=== PATIENT | female | born 1965 | race Hispanic/Latino ===

== ENCOUNTER 2017-05-06 07:01 | Outpatient (CLI) | payer BC | END 2017-05-06 07:02 | disposition home or self-care (01) | LOC: BICULT 07:01 | PROVIDERS: ATTEND Specialist | DX: R79.89 Other specified abnormal findings of blood chemistry (principal); Z90.49 Acquired absence of other specified parts of digestive tract | CPT/HCPCS: 76705 ==

== ENCOUNTER 2017-05-13 07:55 | Outpatient (CLI) | payer BC ==
[2017-05-13] MEDS ORDERED: Gadobenate Dimeglumine 529 MG/1 ML (20ML VIAL) ONE (11:55)
--- NOTE | 2017-05-13 12:11 | MRI ---
MRI CERVICAL SPINE WITH AND WITHOUT CONTRAST: Date: 05/13/17 HISTORY: 51-year-old female with M54.12, cervical radicular pain. Cervical radiculopathy. Neck pain that radia [place] to bilateral upper extremities with bilateral hand paresthesia and pain. COMPARISON: None. TECHNIQUE: Multisequence MRI of cervical spine obtained in sagittal and axial planes, pre and post IV injection of 17 mL MultiHance Gadolinium based contrast agent. FINDINGS: No Chiari 1 malformation. Normal size and signal of the spinal cord, without syrinx. Vertebral body h eights are maintained. Alignment is normal. ACDF metallic hardware at C5 and C6. C1-2: Essentially normal. C2-3: Normal. C3-4: Tiny central disc protrusion or disc-osteophyte complex. No left neural foraminal stenosis. Mild cent ral spinal canal stenosis. Moderate right neural foraminal stenosis due to moderate right facet hyper trophy. There is a small amount of fluid in the right facet joint space. There is bone marrow edema a nd marrow enhancement of the right lateral masses of C3 and C4. There is also a small amount of edema and enhancement in the soft tissues directly posterior to the right facet complex. There are mild de generative changes of the left facet joint. C4-5: Minimal degenerative retrolisthesis of C4 on C5. Mild central stenosis. No right neural foraminal ching nosis. Mild to moderate left neural foraminal stenosis due to moderate left facet hypertrophy. Left f acet joint effusion. Bone marrow edema of the left lateral masses of C4 and C5, with mild enhancement . Almost normal right facet joint (except for fluid in the joint space). Disc space maintained. C5-6: No central or neural foraminal stenosis. Mild to moderate bilateral degenerative facet hypertrophy. C6-7: No central stenosis or right neural foraminal stenosis. Mild left neural foraminal stenosis due to en croachment by mild left uncinate process osteophytes. Essentially normal facet joints. C7-T1: Moderate bilateral degenerative facet changes. Bilateral moderate neural foraminal stenosis. No centr al stenosis. IMPRESSION: 1. Status post anterior cervical diskectomy and fusion at C5-6. 2. 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 3. No high grade central spinal canal stenosis at any level. 4. Moderate neural foraminal stenosis on the right at C3-4, and bilaterally at C7-T1. POS: MANJINDER
== END 2017-05-13 07:56 | disposition home or self-care (01) ==
LOC: MRI 07:55
PROVIDERS: ATTEND Nurse Practitioner Family
DX: M54.12 Radiculopathy, cervical region (principal); M46.82 Other specified inflammatory spondylopathies, cervical region; M48.02 Spinal stenosis, cervical region; Z98.1 Arthrodesis status
CPT/HCPCS: 72156; A9579